=== PATIENT | female | born 1975 | race Two or more races ===

== ENCOUNTER 2024-12-28 18:58 | Inpatient (IN) | payer MEDICAID, OTHER ==
[~2024-12-28] VITALS: Ht 170.2 cm; Wt 74.9 kg
[2024-12-28] MEDS ORDERED: ONDANSETRON HCL/PF 4 MG/2 ML VIAL ONE (19:41)
[2024-12-28] MEDS ORDERED: MORPHINE SULFATE INJ 4 MG/ML DISP.SYRIN ONE (19:41)
[2024-12-28] MEDS: ONDANSETRON HCL/PF 4 MG/2 ML VIAL IVP ONE (19:44)
[2024-12-28] MEDS: MORPHINE SULFATE INJ 2 MG/ML DISP.SYRIN IV ONE (19:46)
[2024-12-28 20:00] LABS: BASOPHILS % (AUTO) 0.2 % (0.0-2.0); EOSINOPHILS # (AUTO) 0.2 K/uL (0.0-0.7); EOSINOPHILS % (AUTO) 0.1 % (0.0-6.0)
[2024-12-28 20:02] LABS: CREATININE 1.5 mg/dL (0.6-1.3)
[2024-12-28 20:07] LABS: ALBUMIN 2.5 g/dL (3.4-5.0); BILIRUBIN,TOTAL 0.3 mg/dL (0.2-1.0)
[2024-12-28] MEDS ORDERED: PIPERACI/TAZO 3.375GM/D5W 50ML PB IV ONE (20:14)
[2024-12-28 20:21] LABS: TOTAL PROTEIN, SERUM 11.4 g/dL (6.4-8.2)
[2024-12-28 20:22] LABS: BILIRUBIN,DIRECT 0.1 mg/dL (0.0-0.2)
[2024-12-28] MEDS: IV NS 0.9% 1,000 ML BAG IV ONE (20:23)
[2024-12-28 20:27] LABS: BASOPHILS # (AUTO) 0.4 K/uL (0.0-0.2); HEMATOCRIT 25 % (33-45); HEMOGLOBIN 7.6 g/dL (11.5-14.8); LYMPHOCYTES # (AUTO) 207.3 K/uL (0.8-4.8); LYMPHOCYTES % (AUTO) 93.9 % (20.0-44.0); MEAN CORPUSCULAR HEMOGLOBIN 24 PG (26.0-33.0); MEAN CORPUSCULAR HGB CONC 30 g/dl (31.0-36.0); MEAN CORPUSCULAR VOLUME 81 fL (82-100); MONOCYTES # (AUTO) 4.7 K/uL (0.1-1.30); MONOCYTES % (AUTO) 2.1 % (2.0-12.0); NEUTROPHILS # (AUTO) 8.2 K/uL (1.8-8.9); NEUTROPHILS % (AUTO) 3.7 % (43.0-81.0); PLATELET COUNT (AUTO) 137 K/uL (150-450); RED BLOOD CELL COUNT(AUTO) 3.11 MIL/uL (4.0-5.2); RED CELL DISTRIBUTION WIDTH 19.6 % (11.5-15.0)
[2024-12-28] MEDS: PIPERACILLIN /TAZOBACTAM 3.375 G in IV D5W 50 ML IV ONE (20:32)
[2024-12-28 20:33] LABS: WHITE BLOOD COUNT (AUTO) 220.7 K/uL (4.3-11.0)
[2024-12-28] MEDS ORDERED: Z GUARD REMEDY 4 OZ OINT TP PRN (22:00)
[2024-12-28] MEDS ORDERED: ONDANSETRON HCL/PF 4 MG/2 ML VIAL IVP PRN (22:00)
[2024-12-28] MEDS ORDERED: MORPHINE SULFATE INJ 2 MG/ML DISP.SYRIN ONE (23:24)
[2024-12-29] VITALS (7 sets, daily range): BP systolic 117–149; BP diastolic 56–86; TEMP 97.3–100.1; O2SAT 96–99
[2024-12-29] MEDS: MORPHINE SULFATE INJ 2 MG/ML DISP.SYRIN IV PRN (00:07)
[2024-12-29] MEDS: IV NS 0.9% 1,000 ML IV PRN (01:10)
[2024-12-29 03:47] LABS: ANISOCYTOSIS 1+; BASOPHILS % (MANUAL) 0 % (0.0-2.0); EOSINOPHILS % (MANUAL) 0 % (0-4); HYPOCHROMASIA FEW; LYMPHOCYTES % (MANUAL) 92 % (16-48); MONOCYTES % (MANUAL) 3 % (0-11.0); NEUTROPHILS % (MANUAL) 5 (42-76); PLATELET ESTIMATE DECREASED; SMUDGE CELLS 1+
[2024-12-29] MEDS ORDERED: PIPERACI/TAZO 3.375GM/D5W 50ML PB IV ONE (04:39)
[2024-12-29] MEDS: PIPERACILLIN /TAZOBACTAM 3.375 G in IV D5W 50 ML IV ONE (04:40)
[2024-12-29] MEDS: PANTOPRAZOLE 40 MG VIAL IV SCH (08:04)
[2024-12-29 08:05] LABS: APPEARANCE,URINE CLEAR (CLEAR); BILIRUBIN,URINE NEGATIVE (NEGATIVE); BLOOD, URINE 2+ Ery/uL (NEGATIVE); COLOR,URINE YELLOW (YELLOW); KETONES,URINE NEGATIVE (NEGATIVE); LEUKOCYTE ESTERASE ,URINE NEGATIVE (NEGATIVE); NITRITE, URINE NEGATIVE (NEGATIVE); PROTEIN,URINE 2+ mg/dl (NEGATIVE); UGLUCOSE NEGATIVE (NEGATIVE); UROBILINOGEN,URINE 0.2 EU/dL (0.2)
[2024-12-29] MEDS: PIPERACILLIN /TAZOBACTAM 3.375 G in IV D5W 100 ML IV SCH (08:06)
[2024-12-29 08:08] LABS: BASOPHILS # (AUTO) 0.3 K/uL (0.0-0.2); BASOPHILS % (AUTO) 0.1 % (0.0-2.0); EOSINOPHILS # (AUTO) 0.2 K/uL (0.0-0.7); EOSINOPHILS % (AUTO) 0.1 % (0.0-6.0); HEMATOCRIT 25 % (33-45); HEMOGLOBIN 7.5 g/dL (11.5-14.8); LYMPHOCYTES # (AUTO) 176.7 K/uL (0.8-4.8); LYMPHOCYTES % (AUTO) 92.6 % (20.0-44.0); MEAN CORPUSCULAR HEMOGLOBIN 25 PG (26.0-33.0); MEAN CORPUSCULAR HGB CONC 31 g/dl (31.0-36.0); MEAN CORPUSCULAR VOLUME 81 fL (82-100); MONOCYTES # (AUTO) 2.8 K/uL (0.1-1.30); MONOCYTES % (AUTO) 1.5 % (2.0-12.0); NEUTROPHILS # (AUTO) 10.9 K/uL (1.8-8.9); NEUTROPHILS % (AUTO) 5.7 % (43.0-81.0); PLATELET COUNT (AUTO) 118 K/uL (150-450); RED BLOOD CELL COUNT(AUTO) 3.02 MIL/uL (4.0-5.2); RED CELL DISTRIBUTION WIDTH 19.7 % (11.5-15.0)
[2024-12-29 08:18] LABS: ALBUMIN 2.3 g/dL (3.4-5.0); BILIRUBIN,DIRECT 0.3 mg/dL (0.0-0.2); BILIRUBIN,TOTAL 0.6 mg/dL (0.2-1.0); CALCIUM, SERUM 8.8 mg/dL (8.5-10.1); CREATININE 1.3 mg/dL (0.6-1.3); MAGNESIUM 1.8 mg/dL (1.8-2.4); PHOSPHORUS 3.7 mg/dL (2.5-4.9); POTASSIUM 4.5 mmol/L (3.5-5.1); TOTAL PROTEIN, SERUM 11.1 g/dL (6.4-8.2)
[2024-12-29 08:20] LABS: BARBITURATE, URINE NEGATIVE (NEGATIVE); BENZODIAZEPINE, URINE NEGATIVE (NEGATIVE); CANNABINOID, URINE NEGATIVE (NEGATIVE); COCCAINE, URINE NEGATIVE (NEGATIVE)
[2024-12-29 08:56] LABS: AMPHETAMINE, URINE POSITIVE (NEGATIVE); OPIATE, URINE POSITIVE (NEGATIVE); PHENCYCLIDINE SCREEN,URINE POSITIVE (NEGATIVE)
[2024-12-29 09:20] LABS: WHITE BLOOD COUNT (AUTO) 190.9 K/uL (4.3-11.0)
[2024-12-29] MEDS: KETOROLAC TROMETHAMINE 15 MG/ML VIAL IV ONE (09:59)
[2024-12-29 10:23] LABS: WBC,URINE 0-2 /HPF (0-3)
[2024-12-29 10:24] LABS: ADD URINE CULTURE YES; BACTERIA,URINE 2+ /HPF (None Seen); COARSE GRANULAR CASTS,URINE Rare /LPF (None Seen)
[2024-12-29] MEDS: IV NS 0.9% 1,000 ML IV SCH (11:07)
[2024-12-29 11:49] LABS: LYMPHOCYTES % (MANUAL) 97 % (16-48); NEUTROPHILS % (MANUAL) 3 (42-76)
[2024-12-29 11:50] LABS: PLATELET ESTIMATE DECREASED
[2024-12-29] MEDS: HYDROMORPHONE 1 MG/1 ML DISP.SYRIN IV PRN (15:56)
[2024-12-29 20:47] LABS: D-DIMER 1.94 mg/L(FEU (0.17-0.50); INR 1.18 (0.91-1.10); PARTIAL THROMBOPLASTIN TIME 26.5 SEC (24.3-34.3); PROTHROMBIN TIME 12.4 SECS (9.2-11.1)
[2024-12-29 20:48] LABS: RHEUMATOID FACTOR SCREEN NEGATIVE (NEGATIVE)
[2024-12-30 00:19] LABS: THYROID STIMULATING HORMONE 0.91 uIU/mL (0.358-3.74)
[2024-12-30 02:49] LABS: BASOPHILS # (AUTO) 0.1 K/uL (0.0-0.2); BASOPHILS % (AUTO) 0.1 % (0.0-2.0); HEMATOCRIT 22 % (33-45); HEMOGLOBIN 7.1 g/dL (11.5-14.8); LYMPHOCYTES # (AUTO) 165.8 K/uL (0.8-4.8); LYMPHOCYTES % (AUTO) 93.5 % (20.0-44.0); MEAN CORPUSCULAR HEMOGLOBIN 26 PG (26.0-33.0); MEAN CORPUSCULAR HGB CONC 32 g/dl (31.0-36.0); MEAN CORPUSCULAR VOLUME 81 fL (82-100); MONOCYTES # (AUTO) 1.9 K/uL (0.1-1.30); MONOCYTES % (AUTO) 1.1 % (2.0-12.0); NEUTROPHILS # (AUTO) 9.4 K/uL (1.8-8.9); NEUTROPHILS % (AUTO) 5.3 % (43.0-81.0); PLATELET COUNT (AUTO) 107 K/uL (150-450); RED BLOOD CELL COUNT(AUTO) 2.77 MIL/uL (4.0-5.2); RED CELL DISTRIBUTION WIDTH 19.7 % (11.5-15.0)
[2024-12-30 02:53] LABS: D-DIMER 2.28 mg/L(FEU (0.17-0.50); INR 1.16 (0.91-1.10); PARTIAL THROMBOPLASTIN TIME 28.5 SEC (24.3-34.3); PROTHROMBIN TIME 12.2 SECS (9.2-11.1); WHITE BLOOD COUNT (AUTO) 177.2 K/uL (4.3-11.0)
[2024-12-30 02:58] LABS: ALBUMIN 1.9 g/dL (3.4-5.0); BILIRUBIN,TOTAL 0.5 mg/dL (0.2-1.0); CALCIUM, SERUM 8.2 mg/dL (8.5-10.1); CREATININE 1.5 mg/dL (0.6-1.3); MAGNESIUM 1.9 mg/dL (1.8-2.4); POTASSIUM 5.2 mmol/L (3.5-5.1); TOTAL PROTEIN, SERUM 10.2 g/dL (6.4-8.2)
[2024-12-30 02:59] LABS: URIC ACID 3.5 mg/dL (2.6-7.2)
[2024-12-30 03:06] LABS: THYROID STIMULATING HORMONE 0.74 uIU/mL (0.358-3.74); URIC ACID 3.4 mg/dL (2.6-7.2)
[2024-12-30 03:54] LABS: PLATELET ESTIMATE DECREASED
[2024-12-30 03:57] LABS: LYMPHOCYTES % (MANUAL) 91 % (16-48); MONOCYTES % (MANUAL) 1 % (0-11.0); NEUTROPHILS % (MANUAL) 8 (42-76)
[2024-12-30 03:58] LABS: ANISOCYTOSIS 1+
[2024-12-30 04:00] LABS: HYPOCHROMASIA FEW
[2024-12-30 08:00] VITALS: BP 124/73; TEMP 98.1; O2SAT 97
[2024-12-30 08:13] LABS: PREGNANCY TEST URINE QUAL NEGATIVE (NEGATIVE)
[2024-12-30] MEDS ORDERED: CIPR-262 PO (11:08)
[2024-12-30] MEDS ORDERED: METR500T PO (11:08)
== END 2024-12-30 08:55 | disposition left against medical advice (07) | DRG 445 ==
LOC: ER 19:07 → MED 12-29 00:23
PROVIDERS: ADMIT Nurse Practitioner Family; ATTEND Nurse Practitioner Acute Care
DX: K80.01 Calculus of gallbladder with acute cholecystitis with obstruction (principal); C91.10 Chronic lymphocytic leukemia of B-cell type not having achieved remission; E44.1 Mild protein-calorie malnutrition; N17.9 Acute kidney failure, unspecified; E87.1 Hypo-osmolality and hyponatremia; E88.09 Other disorders of plasma-protein metabolism, not elsewhere classified; D64.9 Anemia, unspecified; Z68.25 Body mass index [BMI] 25.0-25.9, adult; R73.9 Hyperglycemia, unspecified; E83.9 Disorder of mineral metabolism, unspecified; E86.9 Volume depletion, unspecified; D50.9 Iron deficiency anemia, unspecified; F17.210 Nicotine dependence, cigarettes, uncomplicated; Z53.29 Procedure and treatment not carried out because of patient's decision for other reasons; R74.01 Elevation of levels of liver transaminase levels; R16.1 Splenomegaly, not elsewhere classified; D69.6 Thrombocytopenia, unspecified; R52 Pain, unspecified
CPT/HCPCS: 36415; 76705-TC; 78226; 80048-TC; 80053-TC; 80076-TC; 81001; 82607-TC; 82728-TC; 82784; 83010; 83540-TC; 83615-TC; 83690-TC; 83735-TC; 84100-TC; 84155; 84165; 84443-TC; 84550-TC; 84703-TC; 85025-TC; 85045-TC; 85396; 86225; 86235; 86334; 86431-TC; 86706; 86803; 86880-TC; 87040-TC; 87086-TC; 87340; 87806; A4223; A9537; G0378; J1171; J1885; J2270; J2405; J2470; J2543; J7030; J7060

== ENCOUNTER 2024-12-31 00:31 | Inpatient (IN) | payer OTHER ==
[2024-12-31] VITALS (8 sets, daily range): BP systolic 136–154; BP diastolic 73–99; TEMP 98.1–98.6; O2SAT 97
[~2024-12-31] VITALS: Ht 167.6 cm; Wt 73.3 kg
[~2024-12-31 00:31] MED LIST: CIPR-262 PO; METR500T PO
[2024-12-31] MEDS: IV NS 0.9% 1,000 ML BAG IV ONE (02:02)
[2024-12-31 02:03] LABS: BASOPHILS # (AUTO) 0.1 K/uL (0.0-0.2); HEMATOCRIT 21 % (33-45); LYMPHOCYTES # (AUTO) 169.8 K/uL (0.8-4.8); LYMPHOCYTES % (AUTO) 94.3 % (20.0-44.0); MEAN CORPUSCULAR HEMOGLOBIN 25 PG (26.0-33.0); MEAN CORPUSCULAR HGB CONC 31 g/dl (31.0-36.0); MEAN CORPUSCULAR VOLUME 81 fL (82-100); MONOCYTES # (AUTO) 2.5 K/uL (0.1-1.30); MONOCYTES % (AUTO) 1.4 % (2.0-12.0); NEUTROPHILS # (AUTO) 7.7 K/uL (1.8-8.9); NEUTROPHILS % (AUTO) 4.3 % (43.0-81.0); PLATELET COUNT (AUTO) 117 K/uL (150-450); RED BLOOD CELL COUNT(AUTO) 2.56 MIL/uL (4.0-5.2); RED CELL DISTRIBUTION WIDTH 19.6 % (11.5-15.0)
[2024-12-31 02:07] LABS: WHITE BLOOD COUNT (AUTO) 180.1 K/uL (4.3-11.0)
[2024-12-31 02:08] LABS: HEMOGLOBIN 6.4 g/dL (11.5-14.8)
[2024-12-31] MEDS ORDERED: PIPERACI/TAZO 3.375GM/D5W 50ML PB IV ONE (02:08)
[2024-12-31] MEDS ORDERED: MORPHINE SULFATE INJ 4 MG/ML DISP.SYRIN ONE (02:09)
[2024-12-31] MEDS: MORPHINE SULFATE INJ 2 MG/ML DISP.SYRIN IV ONE (02:10)
[2024-12-31] MEDS: PIPERACILLIN /TAZOBACTAM 3.375 G in IV D5W 50 ML IV ONE (02:11)
[2024-12-31 03:36] LABS: LYMPHOCYTES % (MANUAL) 94 % (16-48); MONOCYTES % (MANUAL) 1 % (0-11.0); NEUTROPHILS % (MANUAL) 5 (42-76); PLATELET ESTIMATE DECREASED
[2024-12-31 03:37] LABS: ANISOCYTOSIS 1+; HYPOCHROMASIA 1+
[2024-12-31 04:13] LABS: CALCIUM, SERUM 8.8 mg/dL (8.5-10.1); CREATININE 1.4 mg/dL (0.6-1.3); POTASSIUM 4.4 mmol/L (3.5-5.1)
[2024-12-31 04:19] LABS: ALBUMIN 1.9 g/dL (3.4-5.0); BILIRUBIN,TOTAL 0.3 mg/dL (0.2-1.0); TOTAL PROTEIN, SERUM 10.2 g/dL (6.4-8.2)
[2024-12-31] MEDS: ENOXAPARIN SODIUM 40 MG/0.4 ML DISP.SYRIN SQ SCH (04:30)
[2024-12-31] MEDS ORDERED: Z GUARD REMEDY 4 OZ OINT TP PRN (04:30)
[2024-12-31] MEDS ORDERED: IV NS 0.9% 1,000 ML IV PRN ×2 (04:30→11:20)
[2024-12-31] MEDS ORDERED: ONDANSETRON HCL/PF 4 MG/2 ML VIAL IVP PRN (04:30)
[2024-12-31] MEDS: PANTOPRAZOLE 40 MG VIAL IV SCH (08:08)
[2024-12-31] MEDS: MORPHINE SULFATE INJ 2 MG/ML DISP.SYRIN IV PRN (08:42)
[2024-12-31] MEDS: PIPERACILLIN /TAZOBACTAM 3.375 G in IV D5W 100 ML IV SCH (12:31)
[2024-12-31] MEDS ORDERED: PIPERACILLIN /TAZOBACTAM 3.375 G in IV D5W 50 ML IV SCH (13:00)
== END 2024-12-31 15:30 | disposition left against medical advice (07) | DRG 445 ==
LOC: ER 00:35 → MED 04:36
PROVIDERS: ADMIT Nurse Practitioner Acute Care; ATTEND Nurse Practitioner Acute Care
PROC: 30233N1 Transfusion of Nonautologous Red Blood Cells into Peripheral Vein, Percutaneous Approach (ICD-10-PCS; principal; 2024-12-31)
DX: K80.01 Calculus of gallbladder with acute cholecystitis with obstruction (principal); C91.10 Chronic lymphocytic leukemia of B-cell type not having achieved remission; E87.1 Hypo-osmolality and hyponatremia; N17.9 Acute kidney failure, unspecified; D69.6 Thrombocytopenia, unspecified; D64.9 Anemia, unspecified; E88.09 Other disorders of plasma-protein metabolism, not elsewhere classified; R74.01 Elevation of levels of liver transaminase levels; E86.9 Volume depletion, unspecified; R16.1 Splenomegaly, not elsewhere classified; R59.0 Localized enlarged lymph nodes; Z91.199 Patient's noncompliance with other medical treatment and regimen due to unspecified reason; Z53.29 Procedure and treatment not carried out because of patient's decision for other reasons; F17.210 Nicotine dependence, cigarettes, uncomplicated; R52 Pain, unspecified
CPT/HCPCS: 80053-TC; 83690-TC; 85025-TC; 86850-TC; A4223; G0378; J1650; J2270; J2470; J2543; J7030; J7050; J7060; P9016